=== PATIENT | female | born 1995 | race Caucasian/White ===

== ENCOUNTER 2016-07-01 12:40 | Emergency (ER) | payer OTHER ==
[~2016-07-01] VITALS: Ht 160 cm; Wt 59.0 kg
[~2016-07-01 12:40] MED LIST: AMOXIL500 MG PO; ENPRESSE PO
[2016-07-01 12:45] VITALS: BP 116/78
[2016-07-01] MEDS ORDERED: BACTRIM DS TAB1 EACH PO (13:31)
[2016-07-01] MEDS ORDERED: ULTRACET TABLE1 EACH PO (13:31)
[2016-07-01] MEDS ORDERED: AMOXICILLIN500 M2 PO (13:31)
--- NOTE | 2016-07-01 13:31 | ED SKIN/ALLERGY COMPLAINT ---
History of Present Illness General Chief Complaint: Eye Problems Stated Complaint: LEFT EYE SWELLING Source: patient Exam Limitations: no limitations Vital Signs & Intake/Output Vital Signs & Intake/Output ED Intake and Output 07/02 0000 07/01 1200 Intake Total Output Total Balance Patient 130 lb Weight Allergies Coded Allergies: No Known Allergies (07/01/16) Reconcile Medications Amoxicillin (Amoxil) 500 MG CAP 1 TAB PO TID PHARAGNITIS Amoxicillin 500 MG CAPSULE 1 CAP PO TID infection LEVONORGESTREL-ETHIN ESTRADIOL (Enpresse-28 Tablet) 1 EACH TABLET 1 TAB PO DAILY CONTROL (Reported) Sulfamethoxazole/Trimethoprim (Bactrim Ds Tablet) 800 MG-160 MG TABLET 1 TAB PO BID infection Tramadol HCl/Acetaminophen (Ultracet Tablet) 37.5 MG-325 MG TABLET 1 TAB PO Q6P PRN pain Triage Note: PT TO TRIAGE WITH LEFT EYEBROW REDNESS SWELLING AND PAIN FOR TWO DAYS. PT STATES IT STARTED LIKE A PIMPLE AND THEN BECAME "ROCK HARD" AND NOW IS WORSE. PT STATES HER VISION IS SLIGHTLY BLURRY AND HER EYE BALL NOW HURTS. SCERLA IS WHITE, NO DRAINAGE AND NO FEVERS. Triage Nurses Notes Reviewed? yes : No Patient currently breastfeeds: No HPI: Patient a small pimple to the left medial eyebrow 2 days ago, started getting more red swollen painful last evening, woke up today with worsening symptoms. Increased redness, swelling, pain and swelling of the eyelid on the superior left eye. She denies any fever or any flulike illness no visual changes no discharge from the eye, no pain with moving the eye. No history of same. No treatment thus far. It is severe with palpation. (CHELSIE CRAWFORD) Past History Travel History Traveled to [place] past 21 day No Medical History Any Pertinent Medical History? 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 No (CHELSIE CRAWFORD) Review of Systems Review of Systems Constitutional: Reports: see HPI. EENTM: Reports: no symptoms. Respiratory: Reports: no symptoms. Cardiovascular: Reports: no symptoms. GI: Reports: no symptoms. Genitourinary: Reports: no symptoms. Musculoskeletal: Reports: no symptoms. Skin: Reports: see HPI. Neurological/Psychological: Reports: no symptoms. Hematologic/Endocrine: Reports: no symptoms. Immunologic/Allergic: Reports: no symptoms. All Other Systems: Reviewed and Negative (CHELSIE CRAWFORD) Physical Exam Physical Exam General Appearance: well developed/nourished Comments: Well-developed well-nourished no apparent distress. HEENT: Atraumatic, extraocular motion intact. There is no pain with extraocular motion. Visual p[place] are normal visual acuity is normal. There is a small pimple noted to the medial left eyebrow region with mild amount of surrounding erythema and mild to moderate swelling. There is mild induration. There is no significant fluctuant abscess. There is no scalp lymphadenopathy Neck: Supple, no lymphadenopathy Back: Nontender Respiratory: No respiratory distress Extremities: No edema, full range of motion Neuro: Alert and oriented x3 Psych: Mood affect normal, normal memory normal judgment. Skin: Warm and dry, no rash on exposed skin (CHELSIE CRAWFORD) Progress Differential Diagnosis: abscess/cellulitis, allergic reaction, anaphylaxis, angioedema, asthma, contact dermatitis, drug reaction, erythema multiforme, lyme disease, meningitis/sepsis, piyriasis rosea, RMSF, scarlet fever, shingles, syphilis/gonococcemia, toxic shock syndrome, urticaria Plan of Care: Orders Procedure Date/time Status URINE 07/01 1247 Complete Laboratory Tests 07/01/16 1313: Urine Test NEGATIVE Comments: Patient with a superficial infection from [facility]. She does not have a deep abscess or collection at this time however this may develop over the next few days and this was discussed with patient. She does not have any periorbital/ orbital cellulitis either. She will be placed on antibiotics, continue warm compresses and returning here if worsening symptoms, worsening pain and redness swelling fever or flulike illness were discussed with patient. She understands and agrees with plan. (CHELSIE CRAWFORD) Departure Departure Disposition: HOME OR SELF CARE Condition: Stable Clinical Impression Primary Impression: Cellulitis, face Referrals: ABIDA MURILLO MD (PCP/Family) Additional Instructions: Moist Warm compresses every hour Take antibiotics as directed Ultracet as needed for pain, ibuprofen [id number] as needed for pain. This may perform a large abscess or worsening infection. 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 I have also reviewed all the pertinent lab results and diagnostic results. I agree with the findings and the plan of care as documented in the PA's/HARDBOARD COATING MACHINE OPERATOR's documentation. [X] I have reviewed the ED Record and agree with the PA's/HARDBOARD COATING MACHINE OPERATOR's documentation. [] Additions or exceptions (if any) to the PAs/HARDBOARD COATING MACHINE OPERATOR's note and plan are summarized below: [] (VINOD CAREY DO
== END 2016-07-01 13:42 ==
LOC: ERH 12:40
DX: L03.211 Cellulitis of face (principal)
CPT/HCPCS: 81025